=== PATIENT | female | born 1950 | race Caucasian/White ===

== ENCOUNTER 2022-10-30 16:47 | Emergency (ER) | payer BC, MEDICARE ==
[2022-10-30] MEDS ORDERED: fentaNYL 50 MCG/ML SDV IVPUSH ONE (18:01)
[2022-10-30] MEDS ORDERED: Propofol 200 MG/20 ML SDV ONE (18:37)
== END 2022-10-30 19:50 | disposition home or self-care (01) ==
LOC: JP.ED 16:47
DX: S52.532A Colles' fracture of left radius, initial encounter for closed fracture (principal); Z88.1 Allergy status to other antibiotic agents; W01.0XXA Fall on same level from slipping, tripping and stumbling without subsequent striking against object, initial encounter
CPT/HCPCS: 25605; 73110; 76000; 99284; J2704; J3010

== ENCOUNTER 2023-10-31 21:44 | Emergency (ER) | payer MEDICARE, OTHER | END 2023-10-31 23:41 | disposition home or self-care (01) | LOC: JP.ED 21:44 | DX: S42.251A Displaced fracture of greater tuberosity of right humerus, initial encounter for closed fracture (principal); Z79.899 Other long term (current) drug therapy; Z88.8 Allergy status to other drugs, medicaments and biological substances; Z90.710 Acquired absence of both cervix and uterus; W19.XXXA Unspecified fall, initial encounter; Y93.89 Activity, other specified | CPT/HCPCS: 73030-26-RT; 73030-RT; 99283 ==